=== PATIENT | male | born 1970 | race African-American/Black ===

== ENCOUNTER 2017-04-17 00:44 | Inpatient (IN) | payer OTHER ==
[~2017-04-17] VITALS: Ht 177.8 cm; Wt 101.2 kg
[2017-04-17 01:40] LABS: BASO % 0 % (0-3); EOS % 2 % (0-3); HEMATOCRIT 43.9 % (39.0-53.0); LYMPH # 0.5 x10^3/uL (1.0-4.8); LYMPH % 7 % (24-48); MEAN CORPUSCULAR HEMOGLOBIN 31 pg (25-35); MEAN CORPUSCULAR HGB CONC 34 g/dL (31-37); MEAN CORPUSCULAR VOLUME 89 fL (79-100); MONO % 7 % (0-9); NEUT % 84 % (31-73); PLATELET COUNT 182 x10^3/uL (140-400); RED BLOOD COUNT 4.91 x10^6/uL (4.30-5.70); RED CELL DISTRIBUTION WIDTH 13.4 % (11.5-14.5); WHITE BLOOD COUNT 6.6 x10^3/uL (4.0-11.0)
[2017-04-17 01:48] LABS: CALCIUM 8.9 mg/dL (8.5-10.1); CREATININE 1.3 mg/dL (0.7-1.3); GFR 72.2; POTASSIUM 3.8 mmol/L (3.5-5.1)
[2017-04-17 01:54] LABS: ALBUMIN 3.8 g/dL (3.4-5.0); DIRECT BILIRUBIN 0.2 mg/dL (0.0-0.2); TOTAL BILIRUBIN 0.7 mg/dL (0.2-1.0); TOTAL PROTEIN 7.7 g/dL (6.4-8.2)
[2017-04-17] MEDS ORDERED: IV NORMAL SALINE 500ML BAG 500 ML IV ONE (02:15)
[2017-04-17] MEDS ORDERED: LABETALOL 20 MG/4 ML DISP.SYRIN. IVP ONE (02:15)
[2017-04-17] MEDS ORDERED: CONTRAST GIVEN MC PRN (02:15)
--- NOTE | 2017-04-17 02:28 | PHYS DOC ---
Past Medical History Past Medical History: Hypertension Past Surgical History: No Surgical History Alcohol Use: Rarely Drug Use: None Adult General Chief Complaint Chief Complaint: NAUSEA/VOMITING/DIARRHA HPI HPI 47-year-old male presenting to the emergency department today with epigastric abdominal pain that is been intermittent over the past 2 days. He reports nausea associated with his symptoms. The pain is sharp shooting nonradiating nonmigratory and without alleviating factors. He denies fever. He denies diarrhea or constipation. Review of systems is negative for fevers chills chest pain or shortness of breath. He denies blood in his stools. All other review of systems is negative unless otherwise noted in history of present illness. ED course: 47-year-old male presenting with epigastric abdominal pain. Upon arrival the patient is afebrile with does have significant high blood pressure. He was given intravenous labetalol which brought his blood pressure down. Blood work obtained. CT abdomen pelvis obtained. Blood work unremarkable. CT abdomen pelvis negative for acute pathology. Patient's blood pressure mildly responded to IV labetalol and hydralazine, but required initiation of an esmolol drip. The patient was then admitted for hypertension management along with intractable nausea vomiting. Patient was admitted to Dr. rangel for further evaluation workup and care.I have assessed this patient clinically and believe that their condition requires an admission to the hospital. After consulting the admitting physician about this case, they have asked that I admit this patient to their service as an inpatient based on the clinical presentation and my impression. Review of Systems Review of Systems SEE ABOVE. Current Medications Current Medications Current Medications Medications (Trade) Dose Ordered Sig/Yohana Start Time Stop Time Status Last Admin Dose Admin Info (Do NOT chart on this entry -- for MONITORING) 1 each PRN DAILY PRN 04/17/17 02:15 04/19/17 02:14 Iohexol (Omnipaque 300 Mg/ml) 75 ml 1X ONCE 04/17/17 02:30 04/17/17 02:31 DC 04/17/17 02:41 75 ML Labetalol HCl (Normodyne) 10 mg 1X ONCE 04/17/17 02:15 04/17/17 02:16 DC 04/17/17 02:37 10 MG Sodium Chloride 500 ml @ 500 mls/hr 1X ONCE 04/17/17 02:15 04/17/17 03:14 DC 04/17/17 03:17 500 MLS/HR Allergies Allergies Allergies Coded Allergies Type Severity Reaction Last Updated Verified No Known Drug Allergies 04/17/17 No Physical Exam Physical Exam SEE ABOVE Constitutional: Well developed, well nourished, no acute distress, non-toxic appearance. HENT: Normocephalic, atraumatic, bilateral external ears normal, oropharynx moist, no oral exudates, nose normal. [] Eyes: PERRLA, EOMI, conjunctiva normal, no discharge. [] Neck: Normal range of motion, no tenderness, supple, no stridor. Cardiovascular:Heart rate regular rhythm, no murmur Lungs & Thorax: Bilateral breath sounds clear to auscultation [] Abdomen: Bowel sounds normal, nondistended, soft, no tenderness, no masses, no pulsatile masses. Skin: Warm, dry, no erythema, no rash. Back: No tenderness, no CVA tenderness. [] Extremities: No tenderness, no cyanosis, no clubbing, ROM intact, no edema. Neurologic: Alert and oriented X 3, normal motor function, normal sensory function, no focal deficits noted. [] Psychologic: Affect normal, judgement normal, mood normal. [] Current Patient Data Vital Signs Vital Signs Date Time Temp Pulse Resp B/P (MAP) Pulse Ox O2 Delivery O2 Flow Rate FiO2 04/17/17 03:47 99 177/97 04/17/17 03:30 18 98 Room Air 04/17/17 00:44 99.5 99.5 Lab Values Laboratory Tests Test 04/17/17 01:32 04/17/17 03:15 White Blood Count 6.6 x10^3/uL (4.0-11.0) Red Blood Count 4.91 x10^6/uL (4.30-5.70) Hemoglobin 15.0 g/dL (13.0-17.5) Hematocrit 43.9 % (39.0-53.0) Mean Corpuscular Volume 89 fL (79-100) Mean Corpuscular Hemoglobin 31 pg (25-35) Mean Corpuscular Hemoglobin Concent 34 g/dL (31-37) Red Cell Distribution Width 13.4 % (11.5-14.5) Platelet Count 182 x10^3/uL (140-400) Neutrophils (%) (Auto) 84 % (31-73) H Lymphocytes (%) (Auto) 7 % (24-48) L Monocytes (%) (Auto) 7 % (0-9) Eosinophils (%) (Auto) 2 % (0-3) Basophils (%) (Auto) 0 % (0-3) Neutrophils # (Auto) 5.6 x10^3uL (1.8-7.7) Lymphocytes # (Auto) 0.5 x10^3/uL (1.0-4.8) L Monocytes # (Auto) 0.5 x10^3/uL (0.0-1.1) Eosinophils # (Auto) 0.1 x10^3/uL (0.0-0.7) Basophils # (Auto) 0.0 x10^3/uL (0.0-0.2) Sodium Level 139 mmol/L (136-145) Potassium Level 3.8 mmol/L (3.5-5.1) Chloride Level 103 mmol/L (98-107) Carbon Dioxide Level 30 mmol/L (21-32) Anion Gap 6 (6-14) Blood Urea Nitrogen 15 mg/dL (8-26) Creatinine 1.3 mg/dL (0.7-1.3) Estimated GFR (Cockcroft-Gault) 72.2 Glucose Level 96 mg/dL (70-99) Calcium Level 8.9 mg/dL (8.5-10.1) Total Bilirubin 0.7 mg/dL (0.2-1.0) Direct Bilirubin 0.2 mg/dL (0.0-0.2) Aspartate Amino Transferase (AST) 28 U/L (15-37) Alanine Aminotransferase (ALT) 29 U/L (16-63) Alkaline Phosphatase 72 U/L (46-116) Troponin I Quantitative 0.017 ng/mL (0.000-0.055) Total Protein 7.7 g/dL (6.4-8.2) Albumin 3.8 g/dL (3.4-5.0) Lipase 119 U/L (73-393) Lactic Acid Level 1.2 mmol/L (0.4-2.0) Laboratory Tests 04/17/17 01:32 Laboratory Tests 04/17/17 01:32 EKG EKG [] Radiology/Procedures Radiology/Procedures [] Course & Med Decision Making Course & Med Decision Making Pertinent Labs and Imaging studies reviewed. (See chart for details) [] Dragon Disclaimer Dragon Disclaimer This electronic medical record was generated, in whole or in part, using a voice recognition dictation system. Departure Departure Impression: Primary Impression: Nausea & vomiting Additional Impression: Hypertensive urgency, malignant Disposition: HOME, SELF-CARE Admitting Physician: Azeb Rangel Condition: STABLE Referrals: NO PCP (PCP) Patient Instructions: Nausea and Vomiting Problem Qualifiers ANN JACOBSON MD Apr 17, 2017 02:28
[2017-04-17] MEDS ORDERED: IOHEXOL 300 MG/ML 100ML VIAL. IV ONE (02:30)
--- NOTE | 2017-04-17 03:38 | RAD ---
INDICATION: abdomen pain
75ml Omni 300
had to stop test while pt vomited directly after contrast injection COMPARISON: None. TECHNIQUE: Axial CT images were obtained through the abdomen and pelvis with intravenous contrast. The contrast bolus is poor secondary to altered timing since patient had episode of emesis. One or more of the following individualized dose reduction techniques were utilized for this examination: 1. Automated exposure control; 2. Adjustment of the mA and/or kV according to patient size; 3. Use of iterative reconstruction technique. FINDINGS: Small hiatal hernia is suspected. Abdominal aorta is not grossly aneurysmal. The lumen is not evaluated secondary to poor contrast. No intrahepatic bile duct dilation. No definite peripancreatic edema. Spleen unremarkable. Contrast excretion is seen in the bilateral kidneys without hydronephrosis. Urinary bladder has some contrast in urine within but not very distended. Wall appears mildly prominent but not very distended. Small fat-containing umbilical hernia. No definite periappendiceal inflammation. No dilated loops of bowel to suggest obstruction. Mild degenerative changes spine IMPRESSION: 1. No evidence of appendicitis. 2. No hydronephrosis. 3. Urinary bladder is largely decompressed but wall appears mildly prominent. Could be from lack of distention but would correlate with symptoms in the region to ensure there is not a pathologic process such as cystitis. 4. Mildly enlarged groin lymph nodes measuring up to about 11 mm short axis. Electronically signed by: Juliano Heredia MD (04/17/2017 3:35 AM) [facility]
[2017-04-17] MEDS ORDERED: ESMOLOL 2500MG/250ML PREMIX 250 ML IV ONE (04:00)
[2017-04-17] MEDS ORDERED: hydrALAZINE 20 MG/ML VIAL. IVP ONE (04:00)
[2017-04-17 04:43] LABS: BILIRUBIN,URINE NEGATIVE (NEG); GLUCOSE,URINE NEGATIVE (NEG); NITRITE,URINE NEGATIVE (NEG); PH,URINE 8.5; PROTEIN,URINE NEGATIVE (NEG-TRACE); UROBILINOGEN,URINE 0.2 mg/dL (0.2 mg/dL)
[2017-04-17 04:48] LABS: BACTERIA,URINE 0 /HPF (0-FEW); SQUAMOUS EPITHELIAL CELL,UR OCC /LPF; WBC,URINE 0 /HPF (0-4)
[2017-04-17] MEDS ORDERED: ONDANSETRON PF 4 MG/2 ML VIAL. IV ONE (05:30)
[2017-04-17] MEDS ORDERED: MORPHINE SULFATE 2 MG/ML DISP.SYRIN. IV PRN (05:45)
[2017-04-17] MEDS ORDERED: ONDANSETRON PF 4 MG/2 ML VIAL. IV PRN (05:45)
[2017-04-17] MEDS ORDERED: diphenhydrAMINE 50 MG/ML VIAL IVP ONE (06:00)
[2017-04-17] MEDS ORDERED: METOCLOPRAMIDE HCL 10 MG/2 ML VIAL. IV ONE (06:00)
[2017-04-17] MEDS: IV NORMAL SALINE 1000ML BAG 1,000 ML IV SCH ×2 (06:15→16:42)
[2017-04-17] MEDS ORDERED: POLYETHYLENE GLYCOL 3350 17 GM PACKET. PO PRN (08:45)
[2017-04-17] MEDS ORDERED: oxyCODONE/APAP 5/325 1 TAB TABLET PO PRN (08:45)
--- NOTE | 2017-04-17 08:48 | PDOC1 ---
History and Physical Date of Admission Date of Admission DATE: 04/17/17 TIME: 08:39 Identification/Chief Complaint Chief Complaint headache, abdominal pain Problems: Source Source: Chart review, Patient History of Present Illness History of Present Illness Mr. Mohamud, is a 47-year-old male admit today with acute epigastric abdominal pain that is been intermittent over the past 2 days. Pain is now LLQ and marked to palpation he has a severe headache, had marked HTn when presented to the ER, 230/100, and has been on esmolol gtt this AM. he has longstanding hx of htn, has not been on meds, does not follow with any physician + nausea, no vomiting, last stool was very hard, limited amount of stool, he got constipated after thanksgiving Past Medical History Cardiovascular: HTN Pulmonary: No pertinent hx GI: No pertinent hx Heme/Onc: No pertinent hx Hepatobiliary: No pertinent hx Psych: No pertinent hx Rheumatologic: No pertinent hx Infectious disease: No pertinent hx ENT: No pertinent hx Renal/: No pertinent hx Family History Family History: Family History Unknown Social History Smoke: No ALCOHOL: none Drugs: None Current Problem List Problem List Problems Medical Problems: (1) Hypertensive urgency, malignant Status: Acute (2) Nausea & vomiting Status: Acute Problems: Current Medications Current Medications Current Medications Sodium Chloride 500 ml @ 500 mls/hr 1X ONCE IV Last administered on 03:17; Start 04/17/17 at 02:15; Stop 04/17/17 at 03:14; Status DC Labetalol HCl (Normodyne) 10 mg 1X ONCE IVP Last administered on 04/17/17 02 :37; Start 04/17/17 at 02:15; Stop 04/17/17 at 02:16; Status DC Iohexol (Omnipaque 300 Mg/ml) 75 ml 1X ONCE IV Last administered on 02:41; Start 04/17/17 at 02:30; Stop 04/17/17 at 02:31; Status DC Info (Do NOT chart on this entry -- for MONITORING) 1 each PRN DAILY PRN MC SEE COMMENTS; Start 04/17/17 at 02:15; Stop 04/19/17 at 02:14 Hydralazine HCl (Apresoline Inj) 10 mg 1X ONCE IVP Last administered on 03:47; Start 04/17/17 at 04:00; Stop 04/17/17 at 04:01; Status DC Esmolol HCl 250 ml @ 0 mls/hr 1X ONCE IV Last administered on 04/17/17 04:42 ; Start 04/17/17 at 04:00; Stop 04/17/17 at 04:01; Status DC Ondansetron HCl (Zofran) 4 mg 1X ONCE IV Last administered on 04/17/17 05:34 ; Start 04/17/17 at 05:30; Stop 04/17/17 at 05:31; Status DC Metoclopramide HCl (Reglan Vial) 10 mg 1X ONCE IV Last administered on 06:11; Start 04/17/17 at 06:00; Stop 04/17/17 at 06:01; Status DC Diphenhydramine HCl (Benadryl) 25 mg 1X ONCE IVP Last administered on 06:10; Start 04/17/17 at 06:00; Stop 04/17/17 at 06:01; Status DC Ondansetron HCl (Zofran) 4 mg PRN Q8HRS PRN IV NAUSEA/VOMITING; Start at 05:45; Stop 04/18/17 at 05:44 Morphine Sulfate 2 mg PRN Q2HR PRN IV SEVERE PAIN Last administered on 06:16; Start 04/17/17 at 05:45; Stop 04/18/17 at 05:44 Sodium Chloride 1,000 ml @ 100 mls/hr Q10H IV Last administered on 04/17/17 06:15; Start 04/17/17 at 06:00; Stop 04/18/17 at 05:59 Famotidine (Pepcid Vial) 20 mg BID IVP ; Start 04/17/17 at 09:00; Status UNV Oxycodone/ Acetaminophen (Percocet 5/325) 1 tab PRN Q4HRS PRN PO PAIN; Start 04/17/17 at 08:45; Status UNV Polyethylene Glycol (miraLAX PACKET) 17 gm DAILY PO ; Start 04/17/17 at 09:00; Status UNV Polyethylene Glycol (miraLAX PACKET) 17 gm PRN BID PRN PO CONSTIPATION; Start 04/17/17 at 08:45; Status UNV Magnesium Hydroxide (Milk Of Magnesia) 2,400 mg 1X ONCE PO ; Start 04/17/17 at 08:45; Stop 04/17/17 at 08:46; Status UNV Allergies Allergies: Coded Allergies: No Known Drug Allergies (Unverified , 04/17/17) ROS Review of System Review of systems is negative for fevers chills chest pain or shortness of breath. He denies blood in his stools. All other review of systems is negative unless otherwise noted in history of present illness. General: No: Chills, Night Sweats, Fatigue, Malaise, Appetite, Other PSYCHOLOGICAL ROS: No: Anxiety, Behavioral Disorder, Concentration difficultie , Decreased libido, Depression, Disorientation, Hallucinations, Hostility, Irritablity, Memory difficulties, Mood Swings, Obsessive thoughts, Physical abuse, Sexual abuse, Sleep disturbances, Suicidal ideation, Other Eyes: No Blurry vision, No Decreased vision, No Double vision, No Dry eyes, No Excessive tearing, No Eye Pain, No Itchy Eyes, No Loss of vision, No Photophobia , No Scotomata, No Uses contacts, No Uses glasses, No Other HEENT: No: Heacaches, Visual Changes, Hearing change, Nasal congestion, Nasal discharge, Oral lesions, Sinus pain, Sore Throat, Epistaxis, Sneezing, Snoring, Tinnitus, Vertigo, Vocal changes, Other Respiratory: No: Cough, Hemoptysis, Orthopnea, Pleuritic Pain, Shortness of breath, SOB with excertion, Sputum Changes, Stridor, Tachypnea, Wheezing, Other Cardiovascular: No Chest Pain, No Palpitations, No Orthopnea, No Paroxysmal Noc. Dyspnea, No Edema, No Lt Headedness, No Other Gastrointestinal: No Nausea, No Vomiting, No Abdominal Pain, No Diarrhea, No Constipation, No Melena, No Hematochezia, No Other Genitourinary: No Dysuria, No Frequency, No Incontinence, No Hematuria, No Retention, No Discharge, No Urgency, No Pain, No Flank Pain, No Other, No , No , No , No , No , No , No Musculoskeletal: No Gait Disturbance, No Joint Pain, No Joint Stiffness, No Joint Swelling, No Muscle Pain, No Muscular Weakness, No Pain In:, No Swelling In:, No Other Neurological: No Behavorial Changes, No Bowel/Bladder ControlChng, No Confusion , No Dizziness, No Gait Disturbance, No Headaches, No Impaired Coord/balance, No Memory Loss, No Numbness/Tingling, No Seizures, No Speech Problems, No Tremors, No Visual Changes, No Weakness, No Other Skin: No Dry Skin, No Eczema, No Hair Changes, No Lumps, No Mole Changes, No Mottling, No Nail Changes, No Pruritus, No Rash, No Skin Lesion Changes, No Other, No Acne Physical Exam General: Alert, Oriented X3, Cooperative HEENT: Atraumatic, PERRLA Lungs: Clear to auscultation, Normal air movement Heart: no gallops, no murmurs Abdomen: Normal bowel sounds, Soft Rectal Exam: not examined Extremities: No edema, Normal pulses Skin: No rashes Neuro: Normal gait, Normal speech, Normal tone, Sensation intact, Cranial nerves 3-12 NL Psych/Mental Status: Mental status NL, Mood NL Vitals Vitals Vital Signs Date Time Temp Pulse Resp B/P (MAP) Pulse Ox O2 Delivery O2 Flow Rate FiO2 04/17/17 07:16 97 14 164/79 (107) 97 Room Air 04/17/17 05:39 100.1 100.1 Labs Labs Laboratory Tests Test 04/17/17 01:32 04/17/17 03:15 04/17/17 04:37 White Blood Count 6.6 x10^3/uL (4.0-11.0) Red Blood Count 4.91 x10^6/uL (4.30-5.70) Hemoglobin 15.0 g/dL (13.0-17.5) Hematocrit 43.9 % (39.0-53.0) Mean Corpuscular Volume 89 fL (79-100) Mean Corpuscular Hemoglobin 31 pg (25-35) Mean Corpuscular Hemoglobin Concent 34 g/dL (31-37) Red Cell Distribution Width 13.4 % (11.5-14.5) Platelet Count 182 x10^3/uL (140-400) Neutrophils (%) (Auto) 84 % (31-73) Lymphocytes (%) (Auto) 7 % (24-48) Monocytes (%) (Auto) 7 % (0-9) Eosinophils (%) (Auto) 2 % (0-3) Basophils (%) (Auto) 0 % (0-3) Neutrophils # (Auto) 5.6 x10^3uL (1.8-7.7) Lymphocytes # (Auto) 0.5 x10^3/uL (1.0-4.8) Monocytes # (Auto) 0.5 x10^3/uL (0.0-1.1) Eosinophils # (Auto) 0.1 x10^3/uL (0.0-0.7) Basophils # (Auto) 0.0 x10^3/uL (0.0-0.2) Sodium Level 139 mmol/L (136-145) Potassium Level 3.8 mmol/L (3.5-5.1) Chloride Level 103 mmol/L (98-107) Carbon Dioxide Level 30 mmol/L (21-32) Anion Gap 6 (6-14) Blood Urea Nitrogen 15 mg/dL (8-26) Creatinine 1.3 mg/dL (0.7-1.3) Estimated GFR (Cockcroft-Gault) 72.2 Glucose Level 96 mg/dL (70-99) Calcium Level 8.9 mg/dL (8.5-10.1) Total Bilirubin 0.7 mg/dL (0.2-1.0) Direct Bilirubin 0.2 mg/dL (0.0-0.2) Aspartate Amino Transf (AST/SGOT) 28 U/L (15-37) Alanine Aminotransferase (ALT/SGPT) 29 U/L (16-63) Alkaline Phosphatase 72 U/L (46-116) Troponin I Quantitative 0.017 ng/mL (0.000-0.055) Total Protein 7.7 g/dL (6.4-8.2) Albumin 3.8 g/dL (3.4-5.0) Lipase 119 U/L (73-393) Lactic Acid Level 1.2 mmol/L (0.4-2.0) Urine Collection Type Unknown Urine Color Yellow Urine Clarity Clear Urine pH 8.5 Urine Specific Loa >=1.030 Urine Protein Negative mg/dL (NEG-TRACE) Urine Glucose (UA) Negative mg/dL (NEG) Urine Ketones (Stick) Negative mg/dL (NEG) Urine Blood Negative (NEG) Urine Nitrite Negative (NEG) Urine Bilirubin Negative (NEG) Urine Urobilinogen Dipstick 0.2 mg/dL (0.2 mg/dL) Urine Leukocyte Esterase Negative (NEG) Urine RBC 1-2 /HPF (0-2) Urine WBC 0 /HPF (0-4) Urine Squamous Epithelial Cells Occ /LPF Urine Bacteria 0 /HPF (0-FEW) Laboratory Tests Test 04/17/17 01:32 04/17/17 03:15 04/17/17 04:37 White Blood Count 6.6 x10^3/uL (4.0-11.0) Red Blood Count 4.91 x10^6/uL (4.30-5.70) Hemoglobin 15.0 g/dL (13.0-17.5) Hematocrit 43.9 % (39.0-53.0) Mean Corpuscular Volume 89 fL (79-100) Mean Corpuscular Hemoglobin 31 pg (25-35) Mean Corpuscular Hemoglobin Concent 34 g/dL (31-37) Red Cell Distribution Width 13.4 % (11.5-14.5) Platelet Count 182 x10^3/uL (140-400) Neutrophils (%) (Auto) 84 % (31-73) Lymphocytes (%) (Auto) 7 % (24-48) Monocytes (%) (Auto) 7 % (0-9) Eosinophils (%) (Auto) 2 % (0-3) Basophils (%) (Auto) 0 % (0-3) Neutrophils # (Auto) 5.6 x10^3uL (1.8-7.7) Lymphocytes # (Auto) 0.5 x10^3/uL (1.0-4.8) Monocytes # (Auto) 0.5 x10^3/uL (0.0-1.1) Eosinophils # (Auto) 0.1 x10^3/uL (0.0-0.7) Basophils # (Auto) 0.0 x10^3/uL (0.0-0.2) Sodium Level 139 mmol/L (136-145) Potassium Level 3.8 mmol/L (3.5-5.1) Chloride Level 103 mmol/L (98-107) Carbon Dioxide Level 30 mmol/L (21-32) Anion Gap 6 (6-14) Blood Urea Nitrogen 15 mg/dL (8-26) Creatinine 1.3 mg/dL (0.7-1.3) Estimated GFR (Cockcroft-Gault) 72.2 Glucose Level 96 mg/dL (70-99) Calcium Level 8.9 mg/dL (8.5-10.1) Total Bilirubin 0.7 mg/dL (0.2-1.0) Direct Bilirubin 0.2 mg/dL (0.0-0.2) Aspartate Amino Transf (AST/SGOT) 28 U/L (15-37) Alanine Aminotransferase (ALT/SGPT) 29 U/L (16-63) Alkaline Phosphatase 72 U/L (46-116) Troponin I Quantitative 0.017 ng/mL (0.000-0.055) Total Protein 7.7 g/dL (6.4-8.2) Albumin 3.8 g/dL (3.4-5.0) Lipase 119 U/L (73-393) Lactic Acid Level 1.2 mmol/L (0.4-2.0) Urine Collection Type Unknown Urine Color Yellow Urine Clarity Clear Urine pH 8.5 Urine Specific Loa >=1.030 Urine Protein Negative mg/dL (NEG-TRACE) Urine Glucose (UA) Negative mg/dL (NEG) Urine Ketones (Stick) Negative mg/dL (NEG) Urine Blood Negative (NEG) Urine Nitrite Negative (NEG) Urine Bilirubin Negative (NEG) Urine Urobilinogen Dipstick 0.2 mg/dL (0.2 mg/dL) Urine Leukocyte Esterase Negative (NEG) Urine RBC 1-2 /HPF (0-2) Urine WBC 0 /HPF (0-4) Urine Squamous Epithelial Cells Occ /LPF Urine Bacteria 0 /HPF (0-FEW) VTE Prophylaxis Ordered VTE Prophylaxis Devices: No VTE Pharmacological Prophylaxi: Yes Assessment/Plan Assessment/Plan accelerated htn, esmolol gtt, start PO norvasc acute abdominal pain, nausea, LLQ pain, hiatal hernia, GI consulted , start IV PPI mild constipation, miralax and magnesium PAULA CANSECO MD Apr 17, 2017 08:48
[2017-04-17] MEDS ORDERED: MAGNESIUM HYDROXIDE 2,400 MG/30 ML ORAL.SUSP. PO ONE ×2 (09:00→14:00)
[2017-04-17] MEDS: amLODIPine BESYLATE 10 MG TABLET PO SCH (09:03)
[2017-04-17] MEDS: FAMOTIDINE 20 MG/2 ML VIAL IVP SCH ×2 (10:17→19:47)
[2017-04-17] MEDS ORDERED: ACETAMINOPHEN 325 MG TABLET. PO PRN (12:45)
--- NOTE | 2017-04-17 13:32 | PDOC2 ---
NATALY OSPINA SPEECH CLINICIAN 04/17/17 1332: CARDIAC CONSULT DATE OF CONSULT Date of Consult DATE: 04/17/17 TIME: 13:21 REASON FOR CONSULT Reason for Consult: HTN REFERRING PHYSICIAN Referring Physician: Gladis SOURCE Source: Chart review, Patient HISTORY OF PRESENT ILLNESS HISTORY OF PRESENT ILLNESS This is a pleasant 47 yo male admitted for complains of chills, nausea and vomiting. Reports that he had this symptoms and woke him up from sleep. No recorded fever. Consult is for HTN. Pt has been noted with HTN 5 yrs ago. He was placed on 2 BP meds but he decided to stop it saying that he did not need it. His last dose was 06/2016. He presented today with the latter symptoms but also has been having mild POSEY and his BP was high. Upon treatment in ED his BP got better but is still labile. Denies any CP, SOA, palpitations, dizziness. Denies any abdominal pain. Denies recreational drug use and NSAID use. No routine medications taken at home. PAST MEDICAL HISTORY Past Medical History HTN otherwise no other medical history PAST SURGICAL HISTORY Past Surgical History: No pertinent history FAMILY HISTORY Family History: Diabetes (mother) SOCIAL HISTORY Smoke: 1 pack per day (15 yrs) ALCOHOL: occassional Drugs: None Lives: Alone CURRENT MEDICATIONS CURRENT MEDICATIONS Current Medications Medications (Trade) Dose Ordered Sig/Yohana Route PRN Reason Start Time Stop Time Status Last Admin Dose Admin Sodium Chloride 500 ml @ 500 mls/hr 1X ONCE IV 04/17/17 02:15 04/17/17 03:14 DC 04/17/17 03:17 Labetalol HCl (Normodyne) 10 mg 1X ONCE IVP 04/17/17 02:15 04/17/17 02:16 DC 04/17/17 02:37 Iohexol (Omnipaque 300 Mg/ml) 75 ml 1X ONCE IV 04/17/17 02:30 04/17/17 02:31 DC 04/17/17 02:41 Hydralazine HCl (Apresoline Inj) 10 mg 1X ONCE IVP 04/17/17 04:00 04/17/17 04:01 DC 04/17/17 03:47 Esmolol HCl 250 ml @ 0 mls/hr 1X ONCE IV 04/17/17 04:00 04/17/17 04:01 DC 04/17/17 04:42 Ondansetron HCl (Zofran) 4 mg 1X ONCE IV 04/17/17 05:30 04/17/17 05:31 DC 04/17/17 05:34 Metoclopramide HCl (Reglan Vial) 10 mg 1X ONCE IV 04/17/17 06:00 04/17/17 06:01 DC 04/17/17 06:11 Diphenhydramine HCl (Benadryl) 25 mg 1X ONCE IVP 04/17/17 06:00 04/17/17 06:01 DC 04/17/17 06:10 Morphine Sulfate 2 mg PRN Q2HR PRN IV SEVERE PAIN 04/17/17 05:45 04/18/17 05:44 04/17/17 06:16 Sodium Chloride 1,000 ml @ 100 mls/hr Q10H IV 04/17/17 06:00 04/18/17 05:59 04/17/17 06:15 Famotidine (Pepcid Vial) 20 mg BID IVP 04/17/17 09:00 04/17/17 10:17 Amlodipine Besylate (Norvasc) 10 mg DAILY PO 04/17/17 09:00 04/17/17 09:03 ALLERGIES ALLERGIES: Coded Allergies: No Known Drug Allergies (Unverified , 04/17/17) ROS Review of System 14 point ROS evaluated with pertinent positives noted per hPI PHYSICAL EXAM General: Alert, Oriented X3, Cooperative, No acute distress HEENT: Atraumatic, Mucous membr. moist/pink Lungs: Clear to auscultation, Normal air movement Heart: Regular rate (SR), Normal S1, Normal S2, No murmurs Abdomen: Soft, No tenderness Extremities: No cyanosis, No edema Skin: No breakdown, No significant lesion Neuro: Normal speech, Sensation intact Psych/Mental Status: Mental status NL, Mood NL MUSCULOSKELETAL: Full range of motion without pain VITALS VITALS Vital Signs Date Time Temp Pulse Resp B/P (MAP) Pulse Ox O2 Delivery O2 Flow Rate FiO2 04/17/17 09:03 98 165/97 04/17/17 07:16 14 97 Room Air 04/17/17 05:39 100.1 100.1 LABS Lab: Laboratory Tests Test 04/17/17 01:32 04/17/17 03:15 04/17/17 04:37 White Blood Count 6.6 x10^3/uL (4.0-11.0) Red Blood Count 4.91 x10^6/uL (4.30-5.70) Hemoglobin 15.0 g/dL (13.0-17.5) Hematocrit 43.9 % (39.0-53.0) Mean Corpuscular Volume 89 fL (79-100) Mean Corpuscular Hemoglobin 31 pg (25-35) Mean Corpuscular Hemoglobin Concent 34 g/dL (31-37) Red Cell Distribution Width 13.4 % (11.5-14.5) Platelet Count 182 x10^3/uL (140-400) Neutrophils (%) (Auto) 84 % (31-73) Lymphocytes (%) (Auto) 7 % (24-48) Monocytes (%) (Auto) 7 % (0-9) Eosinophils (%) (Auto) 2 % (0-3) Basophils (%) (Auto) 0 % (0-3) Neutrophils # (Auto) 5.6 x10^3uL (1.8-7.7) Lymphocytes # (Auto) 0.5 x10^3/uL (1.0-4.8) Monocytes # (Auto) 0.5 x10^3/uL (0.0-1.1) Eosinophils # (Auto) 0.1 x10^3/uL (0.0-0.7) Basophils # (Auto) 0.0 x10^3/uL (0.0-0.2) Sodium Level 139 mmol/L (136-145) Potassium Level 3.8 mmol/L (3.5-5.1) Chloride Level 103 mmol/L (98-107) Carbon Dioxide Level 30 mmol/L (21-32) Anion Gap 6 (6-14) Blood Urea Nitrogen 15 mg/dL (8-26) Creatinine 1.3 mg/dL (0.7-1.3) Estimated GFR (Cockcroft-Gault) 72.2 Glucose Level 96 mg/dL (70-99) Calcium Level 8.9 mg/dL (8.5-10.1) Total Bilirubin 0.7 mg/dL (0.2-1.0) Direct Bilirubin 0.2 mg/dL (0.0-0.2) Aspartate Amino Transf (AST/SGOT) 28 U/L (15-37) Alanine Aminotransferase (ALT/SGPT) 29 U/L (16-63) Alkaline Phosphatase 72 U/L (46-116) Troponin I Quantitative 0.017 ng/mL (0.000-0.055) Total Protein 7.7 g/dL (6.4-8.2) Albumin 3.8 g/dL (3.4-5.0) Lipase 119 U/L (73-393) Lactic Acid Level 1.2 mmol/L (0.4-2.0) Urine Collection Type Unknown Urine Color Yellow Urine Clarity Clear Urine pH 8.5 Urine Specific [place] >=1.030 Urine Protein Negative mg/dL (NEG-TRACE) Urine Glucose (UA) Negative mg/dL (NEG) Urine Ketones (Stick) Negative mg/dL (NEG) Urine Blood Negative (NEG) Urine Nitrite Negative (NEG) Urine Bilirubin Negative (NEG) Urine Urobilinogen Dipstick 0.2 mg/dL (0.2 mg/dL) Urine Leukocyte Esterase Negative (NEG) Urine RBC 1-2 /HPF (0-2) Urine WBC 0 /HPF (0-4) Urine Squamous Epithelial Cells Occ /LPF Urine Bacteria 0 /HPF (0-FEW) ASSESSMENT/PLAN ASSESSMENT/PLAN 1. Accelerated HTN 2. Fever/n/v with inguinal lymphadenopathy: per PCP 3. Dehydration 4. Noncompliance: failed to take BP meds. Noted initially about 5 yrs ago with last dose takenj 06/2016 5. Tobaccoism Recommendations 1. UDS, TSH, lipids 2. TTE. Agree with norvasc. Start on lisinopril. Add HCTZ once n/v is completely resolved. Labetolol IV PRN 3. IVF. 4. Smoking cessation Problems: SONIA MELGAR MD 04/17/17 1454: CARDIAC CONSULT ALLERGIES ALLERGIES: Coded Allergies: No Known Drug Allergies (Unverified , 04/17/17) ASSESSMENT/PLAN ASSESSMENT/PLAN Patient seen and examined. Agree with JUICE SCALEMAN's assessment and plan. Accelerated hypertension secondary to noncompliance. Continue Norvasc and start lisinopril. Check 2-D echo to assess LV systolic function. Thank you for your consultation. Problems: NATALY OSPINA APRN Apr 17, 2017 13:32 SONIA MELGAR MD Apr 17, 2017 14:54
[2017-04-17 13:56] LABS: BARBITURATES NEG (NEG); BENZODIAZEPINES NEG (NEG); CANNABINOIDS NEG (NEG); COCAINE NEG (NEG); METHADONE NEG (NEG); PHENCYCLIDINE NEG (NEG)
[2017-04-17 13:57] LABS: OPIATES POS (NEG)
[2017-04-17 13:59] LABS: CHOLESTEROL/HDL RATIO 3.3
[2017-04-17] MEDS: POLYETHYLENE GLYCOL 3350 17 GM PACKET. PO SCH (14:07)
[2017-04-17] MEDS: LISINOPRIL 20 MG TABLET PO SCH (14:08)
--- NOTE | 2017-04-17 14:20 | EKG ---
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
[2017-04-17 15:00] VITALS: BP 137/83
--- NOTE | 2017-04-17 15:54 | RAD ---
Chest x-ray Indication: Fever, nausea vomiting. Technique: PA and lateral views of the chest Comparison: None Findings: Heart is top normal in size. Lungs are clear. No pneumothorax or pleural effusion. Visualized bony thorax is within normal limits. Eventration of the right hemidiaphragm. Impression: No acute cardiopulmonary process.
[2017-04-17 19:00] VITALS: BP 135/86
[2017-04-17 23:00] VITALS: BP 123/84
[2017-04-18] MEDS: IV NORMAL SALINE 1000ML BAG 1,000 ML IV SCH (02:07)
[2017-04-18 03:00] VITALS: BP 167/90
[2017-04-18 05:44] LABS: BASO % 1 % (0-3); EOS % 3 % (0-3); HEMATOCRIT 41.8 % (39.0-53.0); HEMOGLOBIN 13.9 g/dL (13.0-17.5); LYMPH # 1.1 x10^3/uL (1.0-4.8); LYMPH % 31 % (24-48); MEAN CORPUSCULAR HEMOGLOBIN 30 pg (25-35); MEAN CORPUSCULAR HGB CONC 33 g/dL (31-37); MEAN CORPUSCULAR VOLUME 91 fL (79-100); MONO % 16 % (0-9); NEUT % 49 % (31-73); PLATELET COUNT 166 x10^3/uL (140-400); RED CELL DISTRIBUTION WIDTH 13.4 % (11.5-14.5); WHITE BLOOD COUNT 3.4 x10^3/uL (4.0-11.0)
[2017-04-18 06:17] LABS: CALCIUM 8.2 mg/dL (8.5-10.1); CREATININE 1.3 mg/dL (0.7-1.3); GFR 72.2; POTASSIUM 3.8 mmol/L (3.5-5.1)
[2017-04-18 07:00] VITALS: BP 189/118
[2017-04-18] MEDS: amLODIPine BESYLATE 10 MG TABLET PO SCH (07:29)
[2017-04-18] MEDS: LISINOPRIL 20 MG TABLET PO SCH (07:30)
[2017-04-18] MEDS: POLYETHYLENE GLYCOL 3350 17 GM PACKET. PO SCH (09:00)
[2017-04-18] MEDS ORDERED: LISINOPRIL 20 MG TABLET PO SCH (09:00)
[2017-04-18] MEDS: FAMOTIDINE 20 MG/2 ML VIAL IVP SCH (09:02)
[2017-04-18 11:00] VITALS: BP 176/110
[2017-04-18 11:57] VITALS: BP 167/110
[2017-04-18] MEDS ORDERED: hydrALAZINE 20 MG/ML VIAL. IVP PRN (12:00)
[2017-04-18] MEDS ORDERED: AMLO10TA4 PO (13:04)
[2017-04-18] MEDS ORDERED: LISI-334 PO (13:04)
--- NOTE | 2017-04-18 13:06 | PDOC3 ---
Discharge Summary Visit Information Date of Admission: Apr 17, 2017 Date of Discharge: Apr 18, 2017 Admitting Diagnosis Comment: HTN emergency Final Diagnosis Problems Medical Problems: (1) Hypertensive urgency, malignant Status: Acute (2) Nausea & vomiting Status: Acute Brief Hospital Course Allergies Allergies Coded Allergies Type Severity Reaction Last Updated Verified No Known Drug Allergies 04/17/17 No Vital Signs Vital Signs Date Time Temp Pulse Resp B/P (MAP) Pulse Ox O2 Delivery O2 Flow Rate FiO2 04/18/17 11:57 167/110 04/18/17 11:00 97.9 70 22 97 Room Air 97.9 Lab Results Laboratory Tests Test 04/17/17 01:32 04/17/17 03:15 04/17/17 04:37 04/18/17 04:50 White Blood Count 6.6 x10^3/uL (4.0-11.0) 3.4 x10^3/uL (4.0-11.0) Red Blood Count 4.91 x10^6/uL (4.30-5.70) 4.60 x10^6/uL (4.30-5.70) Hemoglobin 15.0 g/dL (13.0-17.5) 13.9 g/dL (13.0-17.5) Hematocrit 43.9 % (39.0-53.0) 41.8 % (39.0-53.0) Mean Corpuscular Volume 89 fL (79-100) 91 fL (79-100) Mean Corpuscular Hemoglobin 31 pg (25-35) 30 pg (25-35) Mean Corpuscular Hemoglobin Concent 34 g/dL (31-37) 33 g/dL (31-37) Red Cell Distribution Width 13.4 % (11.5-14.5) 13.4 % (11.5-14.5) Platelet Count 182 x10^3/uL (140-400) 166 x10^3/uL (140-400) Neutrophils (%) (Auto) 84 % (31-73) 49 % (31-73) Lymphocytes (%) (Auto) 7 % (24-48) 31 % (24-48) Monocytes (%) (Auto) 7 % (0-9) 16 % (0-9) Eosinophils (%) (Auto) 2 % (0-3) 3 % (0-3) Basophils (%) (Auto) 0 % (0-3) 1 % (0-3) Neutrophils # (Auto) 5.6 x10^3uL (1.8-7.7) 1.7 x10^3uL (1.8-7.7) Lymphocytes # (Auto) 0.5 x10^3/uL (1.0-4.8) 1.1 x10^3/uL (1.0-4.8) Monocytes # (Auto) 0.5 x10^3/uL (0.0-1.1) 0.5 x10^3/uL (0.0-1.1) Eosinophils # (Auto) 0.1 x10^3/uL (0.0-0.7) 0.1 x10^3/uL (0.0-0.7) Basophils # (Auto) 0.0 x10^3/uL (0.0-0.2) 0.0 x10^3/uL (0.0-0.2) Sodium Level 139 mmol/L (136-145) 139 mmol/L (136-145) Potassium Level 3.8 mmol/L (3.5-5.1) 3.8 mmol/L (3.5-5.1) Chloride Level 103 mmol/L (98-107) 106 mmol/L (98-107) Carbon Dioxide Level 30 mmol/L (21-32) 29 mmol/L (21-32) Anion Gap 6 (6-14) 4 (6-14) Blood Urea Nitrogen 15 mg/dL (8-26) 12 mg/dL (8-26) Creatinine 1.3 mg/dL (0.7-1.3) 1.3 mg/dL (0.7-1.3) Estimated GFR (Cockcroft-Gault) 72.2 72.2 Glucose Level 96 mg/dL (70-99) 91 mg/dL (70-99) Calcium Level 8.9 mg/dL (8.5-10.1) 8.2 mg/dL (8.5-10.1) Total Bilirubin 0.7 mg/dL (0.2-1.0) Direct Bilirubin 0.2 mg/dL (0.0-0.2) Aspartate Amino Transf (AST/SGOT) 28 U/L (15-37) Alanine Aminotransferase (ALT/SGPT) 29 U/L (16-63) Alkaline Phosphatase 72 U/L (46-116) Troponin I Quantitative 0.017 ng/mL (0.000-0.055) Total Protein 7.7 g/dL (6.4-8.2) Albumin 3.8 g/dL (3.4-5.0) Triglycerides Level 74 mg/dL (0-150) Cholesterol Level 187 mg/dL (0-200) LDL Cholesterol, Calculated 116 mg/dL (0-100) VLDL Cholesterol, Calculated 15 mg/dL (0-40) Non-HDL Cholesterol Calculated 131 mg/dL (0-129) HDL Cholesterol 56 mg/dL (40-60) Cholesterol/HDL Ratio 3.3 Lipase 119 U/L (73-393) Thyroid Stimulating Hormone (TSH) 1.121 uIU/mL (0.358-3.74) Lactic Acid Level 1.2 mmol/L (0.4-2.0) Urine Collection Type Unknown Urine Color Yellow Urine Clarity Clear Urine pH 8.5 Urine Specific [place] >=1.030 Urine Protein Negative mg/dL (NEG-TRACE) Urine Glucose (UA) Negative mg/dL (NEG) Urine Ketones (Stick) Negative mg/dL (NEG) Urine Blood Negative (NEG) Urine Nitrite Negative (NEG) Urine Bilirubin Negative (NEG) Urine Urobilinogen Dipstick 0.2 mg/dL (0.2 mg/dL) Urine Leukocyte Esterase Negative (NEG) Urine RBC 1-2 /HPF (0-2) Urine WBC 0 /HPF (0-4) Urine Squamous Epithelial Cells Occ /LPF Urine Bacteria 0 /HPF (0-FEW) Urine Opiates Screen Pos (NEG) Urine Methadone Screen Neg (NEG) Urine Barbiturates Neg (NEG) Urine Phencyclidine Screen Neg (NEG) Urine Amphetamine/Methamphetamine Neg (NEG) Urine Benzodiazepines Screen Neg (NEG) Urine Cocaine Screen Neg (NEG) Urine Cannabinoids Screen Neg (NEG) Urine Ethyl Alcohol Neg (NEG) Laboratory Tests Test 04/18/17 04:50 White Blood Count 3.4 x10^3/uL (4.0-11.0) Red Blood Count 4.60 x10^6/uL (4.30-5.70) Hemoglobin 13.9 g/dL (13.0-17.5) Hematocrit 41.8 % (39.0-53.0) Mean Corpuscular Volume 91 fL (79-100) Mean Corpuscular Hemoglobin 30 pg (25-35) Mean Corpuscular Hemoglobin Concent 33 g/dL (31-37) Red Cell Distribution Width 13.4 % (11.5-14.5) Platelet Count 166 x10^3/uL (140-400) Neutrophils (%) (Auto) 49 % (31-73) Lymphocytes (%) (Auto) 31 % (24-48) Monocytes (%) (Auto) 16 % (0-9) Eosinophils (%) (Auto) 3 % (0-3) Basophils (%) (Auto) 1 % (0-3) Neutrophils # (Auto) 1.7 x10^3uL (1.8-7.7) Lymphocytes # (Auto) 1.1 x10^3/uL (1.0-4.8) Monocytes # (Auto) 0.5 x10^3/uL (0.0-1.1) Eosinophils # (Auto) 0.1 x10^3/uL (0.0-0.7) Basophils # (Auto) 0.0 x10^3/uL (0.0-0.2) Sodium Level 139 mmol/L (136-145) Potassium Level 3.8 mmol/L (3.5-5.1) Chloride Level 106 mmol/L (98-107) Carbon Dioxide Level 29 mmol/L (21-32) Anion Gap 4 (6-14) Blood Urea Nitrogen 12 mg/dL (8-26) Creatinine 1.3 mg/dL (0.7-1.3) Estimated GFR (Cockcroft-Gault) 72.2 Glucose Level 91 mg/dL (70-99) Calcium Level 8.2 mg/dL (8.5-10.1) Brief Hospital Course Mr. 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
== END 2017-04-18 14:19 | disposition home or self-care (01) | DRG 305 ==
LOC: ER 00:44 → 6 SOUTH 03:47 → ED HOLD 04:19 → 5 NORTH 10:58
PROVIDERS: ADMIT Internal Medicine; ATTEND Internal Medicine
DX: I16.0 Hypertensive urgency (principal); E86.0 Dehydration; F17.210 Nicotine dependence, cigarettes, uncomplicated; K44.9 Diaphragmatic hernia without obstruction or gangrene; I10 Essential (primary) hypertension; K59.00 Constipation, unspecified; R59.1 Generalized enlarged lymph nodes; Z91.19 Patient's noncompliance with other medical treatment and regimen; Z83.3 Family history of diabetes mellitus
CPT/HCPCS: 36415; 71020; 74177; 80048; 80061; 80076; 80307; 81001; 83605; 83690; 84443; 84484; 85025; 87040; 87086; 93005; 96361; 96365; 96375; J0360; J1200; J2270; J2405; J2765; J3490; J7030; J7040; Q9967; S0028; 99285-25; G0479

== ENCOUNTER 2018-03-05 00:55 | Emergency (ER) | payer OTHER ==
[~2018-03-05] VITALS: Ht 177.8 cm; Wt 107.0 kg
[~2018-03-05 00:55] MED LIST: AMLO10TA4 PO; LISI-334 PO
[2018-03-05 01:15] VITALS: BP 218/140
[2018-03-05] MEDS ORDERED: IV NORMAL SALINE 1000ML BAG 1,000 ML IV ONE (03:00)
[2018-03-05 03:41] LABS: BASO % 1 % (0-3); EOS # 0.3 x10^3/uL (0.0-0.7); EOS % 4 % (0-3); HEMATOCRIT 42.7 % (39.0-53.0); LYMPH # 1.8 x10^3/uL (1.0-4.8); LYMPH % 30 % (24-48); MEAN CORPUSCULAR HEMOGLOBIN 31 pg (25-35); MEAN CORPUSCULAR HGB CONC 35 g/dL (31-37); MEAN CORPUSCULAR VOLUME 90 fL (79-100); MONO # 0.6 x10^3/uL (0.0-1.1); MONO % 10 % (0-9); NEUT # 3.4 x10^3uL (1.8-7.7); NEUT % 55 % (31-73); PLATELET COUNT 207 x10^3/uL (140-400); RED BLOOD COUNT 4.77 x10^6/uL (4.30-5.70); RED CELL DISTRIBUTION WIDTH 13.3 % (11.5-14.5); WHITE BLOOD COUNT 6.1 x10^3/uL (4.0-11.0)
--- NOTE | 2018-03-05 03:42 | PHYS DOC ---
Past Medical History Past Medical History: Hypertension Additional Past Medical Histor: RIGHT CALF NONHEALING WOUND Past Surgical History: No Surgical History Additional Past Surgical Histo: LT ACL REPAIR, EYE SX A CHILD Smoking: Cigarettes Alcohol Use: Rarely Drug Use: None Adult General Chief Complaint Chief Complaint: LOWER EXT PAIN HPI HPI 48 y/o male presents with report of chronic wound to right lower fibular area x 8-9 weeks. Patient reports wound started after accidentally catching it on surekha at his work [employer]. Reports is currently on his third round of antibiotics- doxycycline. Patient reports concern that it is not healing appropriately. Reports continued pain to area. Denies fever/chills. Denies redness or exudate. Report received tetanus booster 3 days ago. Denies immune compromised state including DM or chemotherapy. Review of Systems Review of Systems Constitutional: Denies fever or chills [] Eyes: Denies change in visual acuity, redness, or eye pain [] HENT: Denies nasal congestion or sore throat [] Respiratory: Denies cough or shortness of breath [] Cardiovascular: Denies chest pain or palpitations GI: Denies abdominal pain, nausea, vomiting, or diarrhea [] : Denies dysuria or hematuria [] Musculoskeletal: Denies back pain or joint pain [] Integument: Reports slow healing lesion to RLE Neurologic: Denies headache, focal weakness or sensory changes [] Complete systems were reviewed and found to be within normal limits, except as documented in this note. Current Medications Current Medications Current Medications Medications (Trade) Dose Ordered Sig/Yohana Start Time Stop Time Status Last Admin Dose Admin Ketorolac Tromethamine (Toradol 15mg Vial) 15 mg 1X ONCE 03/05/18 04:30 03/05/18 04:31 03/05/18 04:24 15 MG Potassium Chloride (Klor-Con) 40 meq 1X ONCE 03/05/18 04:30 03/05/18 04:31 03/05/18 04:24 40 MEQ Sodium Chloride 1,000 ml @ 1,000 mls/hr 1X ONCE 03/05/18 03:00 03/05/18 03:59 DC 03/05/18 03:16 1,000 MLS/HR Allergies Allergies Allergies Coded Allergies Type Severity Reaction Last Updated Verified No Known Drug Allergies 04/17/17 No Physical Exam Physical Exam Constitutional: Well developed, well nourished, no acute distress, non-toxic appearance. [] HENT: Normocephalic, atraumatic Eyes: Conjunctiva normal, no discharge. [] Neck: Normal range of motion, no tenderness, supple Cardiovascular: Heart rate regular rhythm, no murmur [] Lungs & Thorax: Bilateral breath sounds clear to auscultation [] Abdomen: Soft, no tenderness Skin: Warm, dry, no erythema, healing wound to lateral right distal third fibular area, no fluctuance, healing eschar noted, no exudate, mild tenderness to palpation Extremities: ROM intact, mild edema to RLE. [] Neurologic: Alert and oriented X 3, normal motor function, normal sensory function, no focal deficits noted. [] Psychologic: Affect normal, judgement normal, mood normal. [] Current Patient Data Vital Signs Vital Signs Date Time Temp Pulse Resp B/P (MAP) Pulse Ox O2 Delivery O2 Flow Rate FiO2 03/05/18 01:15 97.9 84 20 218/140 (166) 98 Room Air 97.9 Lab Values Laboratory Tests Test 03/05/18 03:15 White Blood Count 6.1 x10^3/uL (4.0-11.0) Red Blood Count 4.77 x10^6/uL (4.30-5.70) Hemoglobin 15.0 g/dL (13.0-17.5) Hematocrit 42.7 % (39.0-53.0) Mean Corpuscular Volume 90 fL (79-100) Mean Corpuscular Hemoglobin 31 pg (25-35) Mean Corpuscular Hemoglobin Concent 35 g/dL (31-37) Red Cell Distribution Width 13.3 % (11.5-14.5) Platelet Count 207 x10^3/uL (140-400) Neutrophils (%) (Auto) 55 % (31-73) Lymphocytes (%) (Auto) 30 % (24-48) Monocytes (%) (Auto) 10 % (0-9) H Eosinophils (%) (Auto) 4 % (0-3) H Basophils (%) (Auto) 1 % (0-3) Neutrophils # (Auto) 3.4 x10^3uL (1.8-7.7) Lymphocytes # (Auto) 1.8 x10^3/uL (1.0-4.8) Monocytes # (Auto) 0.6 x10^3/uL (0.0-1.1) Eosinophils # (Auto) 0.3 x10^3/uL (0.0-0.7) Basophils # (Auto) 0.0 x10^3/uL (0.0-0.2) Prothrombin Time 12.7 SEC (11.7-14.0) Prothrombin Time INR 1.0 (0.8-1.1) PTT 33 SEC (24-38) Sodium Level 141 mmol/L (136-145) Potassium Level 3.3 mmol/L (3.5-5.1) L Chloride Level 101 mmol/L (98-107) Carbon Dioxide Level 32 mmol/L (21-32) Anion Gap 8 (6-14) Blood Urea Nitrogen 21 mg/dL (8-26) Creatinine 1.5 mg/dL (0.7-1.3) H Estimated GFR (Cockcroft-Gault) 61.0 BUN/Creatinine Ratio 14 (6-20) Glucose Level 110 mg/dL (70-99) H Lactic Acid Level 0.8 mmol/L (0.4-2.0) Calcium Level 9.3 mg/dL (8.5-10.1) Magnesium Level 1.8 mg/dL (1.8-2.4) Total Bilirubin 0.4 mg/dL (0.2-1.0) Aspartate Amino Transferase (AST) 25 U/L (15-37) Alanine Aminotransferase (ALT) 38 U/L (16-63) Alkaline Phosphatase 76 U/L (46-116) Total Protein 7.7 g/dL (6.4-8.2) Albumin 3.7 g/dL (3.4-5.0) Albumin/Globulin Ratio 0.9 (1.0-1.7) L Laboratory Tests 03/05/18 03:15 Laboratory Tests 03/05/18 03:15 EKG EKG [] Radiology/Procedures Radiology/Procedures XR right Tibia/Fibula(preliminary interpretation by ED physician)- NO fracture, no retained foreign body RLE venous doppler- preliminary interpretation: NO acute DVT Course & Med Decision Making Course & Med Decision Making Pertinent Labs and Imaging studies reviewed. (See chart for details) Patient presents with 8-9 week history of right lower extremity distal wound for which patient is on his third round of antibiotics. No significant signs of infection appreciated. Patient is afebrile. Tetanus is up-to-date. Labs obtained and posted to chart. Hypokalemia addressed. Renal insufficiency baseline per [employer] review. X-rays of right tibia/fibula obtained without acute process. Venous Doppler negative for DVT. Patient stable for discharge with outpatient follow-up with PCP/wound care. Wound care referral provided. Discussed findings and plan with patient, who acknowledges understanding and agreement. Dragon Disclaimer Dragon Disclaimer This electronic medical record was generated, in whole or in part, using a voice recognition dictation system. Departure Departure Impression: Primary Impression: Encounter for evaluation of wound Additional Impression: Hypokalemia Disposition: HOME, SELF-CARE Condition: STABLE Referrals: NO PCP (PCP) Patient Instructions: Hypokalemia-Brief, Potassium Content of Foods, Wound Care , [id number], Wound Check Additional Instructions: Continue previously prescribed antibiotics Scripts Mupirocin Calcium (BACTROBAN CREAM) 15 Gm Cream..g. 1 SUSAN TP TID, #30 GM Prov: NICOLE BUCKNER DO 03/05/18 Problem Qualifiers NICOLE BUCKNER DO Mar 05, 2018 03:42
[2018-03-05 03:48] LABS: PROTHROMBIN TIME PATIENT 12.7 SEC (11.7-14.0)
[2018-03-05 03:51] LABS: CALCIUM 9.3 mg/dL (8.5-10.1); CREATININE 1.5 mg/dL (0.7-1.3); POTASSIUM 3.3 mmol/L (3.5-5.1)
[2018-03-05 03:57] LABS: ALBUMIN 3.7 g/dL (3.4-5.0); ALBUMIN/GLOBULIN RATIO 0.9 (1.0-1.7); MAGNESIUM 1.8 mg/dL (1.8-2.4); TOTAL BILIRUBIN 0.4 mg/dL (0.2-1.0); TOTAL PROTEIN 7.7 g/dL (6.4-8.2)
[2018-03-05] MEDS ORDERED: MUPI15CR TP (03:57)
[2018-03-05] MEDS ORDERED: POTASSIUM CHLORIDE 20 MEQ TABLET.ER. PO ONE (04:30)
[2018-03-05] MEDS ORDERED: KETOROLAC 15 MG/ML VIAL. IV ONE (04:30)
[2018-03-05] MEDS ORDERED: TRAM50TA PO (04:56)
--- NOTE | 2018-03-05 05:08 | RAD ---
CLINICAL HISTORY: RT CALF PAIN AND SWELLING COMPARISON: None available. TECHNIQUE: Ultrasound evaluation of the right leg was performed from the groin to the upper calf with wiley scale, spectral and color doppler evaluation. FINDINGS: The right common femoral vein, and femoral vein, including the saphenous-femoral junction are normal in appearance. Color and spectral Doppler evaluation demonstrates normal spontaneous flow, augmentation and phasicity. The popliteal vein and visualized calf veins also demonstrate normal compressibility and flow. IMPRESSION: No evidence of right lower extremity DVT. Electronically signed by: Chris Tan MD (03/05/2018 5:04 AM) [place] [id number]
--- NOTE | 2018-03-05 08:11 | RAD ---
2 view study of the right tibia and fibula Clinical indications: Lateral wound of the distal one third of the lower leg. Patient fell through floor at work 8 weeks ago, scratch. Scratch is now a wound. FINDINGS: No acute fracture or dislocation or osteolytic process is evident. No radiopaque foreign body is evident. IMPRESSION: No acute osseous abnormality. Electronically signed by: Ashwin Erazo MD (03/05/2018 8:08 AM) [facility]
== END 2018-03-05 05:05 | disposition home or self-care (01) ==
LOC: ER 00:55
DX: S81.801D Unspecified open wound, right lower leg, subsequent encounter (principal); Z48.01 Encounter for change or removal of surgical wound dressing; E87.6 Hypokalemia; I10 Essential (primary) hypertension; F17.210 Nicotine dependence, cigarettes, uncomplicated; X58.XXXD Exposure to other specified factors, subsequent encounter
CPT/HCPCS: 36415; 73590; 80053; 83605; 83735; 85025; 85610; 85730; 87040; 93971; 96374; 99285; J1885; J7030

== ENCOUNTER → 2018-03-29 | Outpatient (CLI) | payer OTHER ==
[2018-03-05 01:15] VITALS: BP 218/140
[~2018-03-29] MED LIST changes: +MUPI15CR TP; +TRAM50TA PO
== END | disposition home or self-care (01) ==
LOC: PMGWOUND 11:05
PROVIDERS: ATTEND Preventive Medicine Undersea and Hyperbaric Medicine
DX: I87.311 Chronic venous hypertension (idiopathic) with ulcer of right lower extremity (principal); L97.312 Non-pressure chronic ulcer of right ankle with fat layer exposed; F17.210 Nicotine dependence, cigarettes, uncomplicated; E66.9 Obesity, unspecified; Z68.34 Body mass index [BMI] 34.0-34.9, adult
CPT/HCPCS: 11042

== ENCOUNTER → 2018-04-05 | Outpatient (CLI) | payer OTHER ==
--- NOTE | 2018-04-06 15:53 | RAD ---
Right lower extremity venous Doppler dated 12/03/2017. No comparison available. Clinical data indication: Nonhealing ulcer. Right leg pain. FINDINGS: Grayscale color flow and spectral waveform analysis performed. There is venous reflux within the right greater saphenous vein extending from the groin to the ankle, lasting greater than 1 second. There is also venous reflux involving the small saphenous vein from the knee to the ankle, greater than one second. A lateral assessor of the calf veins to the ulcer side, also with venous reflux. IMPRESSION: Study is positive for venous reflux involving the right greater saphenous vein and right small saphenous vein. There is also a refluxing lateral assessor in the right calf. Electronically signed by: Lyle Mckeon MD (04/06/2018 3:49 PM) [facility]
== END | disposition home or self-care (01) ==
LOC: US 10:14
PROVIDERS: ATTEND Preventive Medicine Undersea and Hyperbaric Medicine
DX: L97.218 Non-pressure chronic ulcer of right calf with other specified severity (principal)
CPT/HCPCS: 93971; 97597

== ENCOUNTER → 2018-04-17 | Outpatient (CLI) | payer OTHER | END | disposition home or self-care (01) | LOC: PMGWOUND 10:08 | PROVIDERS: ATTEND Preventive Medicine Undersea and Hyperbaric Medicine | DX: I87.311 Chronic venous hypertension (idiopathic) with ulcer of right lower extremity (principal); L97.311 Non-pressure chronic ulcer of right ankle limited to breakdown of skin; F17.210 Nicotine dependence, cigarettes, uncomplicated; E66.9 Obesity, unspecified; Z68.34 Body mass index [BMI] 34.0-34.9, adult | CPT/HCPCS: 97597 ==

== ENCOUNTER → 2018-05-03 | Outpatient (CLI) | payer OTHER | END | disposition home or self-care (01) | LOC: PMGWOUND 11:25 | PROVIDERS: ATTEND Preventive Medicine Undersea and Hyperbaric Medicine | DX: I87.311 Chronic venous hypertension (idiopathic) with ulcer of right lower extremity (principal); L97.812 Non-pressure chronic ulcer of other part of right lower leg with fat layer exposed; F17.210 Nicotine dependence, cigarettes, uncomplicated; E66.9 Obesity, unspecified; Z68.34 Body mass index [BMI] 34.0-34.9, adult | CPT/HCPCS: 29581; 97597 ==

== ENCOUNTER → 2018-05-06 | Outpatient (CLI) | payer OTHER | END | disposition home or self-care (01) | LOC: PMGWOUND 08:13 | PROVIDERS: ATTEND Emergency Medicine Undersea and Hyperbaric Medicine | DX: I87.311 Chronic venous hypertension (idiopathic) with ulcer of right lower extremity (principal); L97.311 Non-pressure chronic ulcer of right ankle limited to breakdown of skin; F17.210 Nicotine dependence, cigarettes, uncomplicated; E66.9 Obesity, unspecified; Z68.34 Body mass index [BMI] 34.0-34.9, adult | CPT/HCPCS: 29581 ==

== ENCOUNTER → 2018-05-17 | Outpatient (CLI) | payer OTHER | END | disposition home or self-care (01) | LOC: PMGWOUND 11:32 | PROVIDERS: ATTEND Preventive Medicine Undersea and Hyperbaric Medicine | DX: I87.311 Chronic venous hypertension (idiopathic) with ulcer of right lower extremity (principal); L97.312 Non-pressure chronic ulcer of right ankle with fat layer exposed; F17.210 Nicotine dependence, cigarettes, uncomplicated; E66.9 Obesity, unspecified; Z68.34 Body mass index [BMI] 34.0-34.9, adult | CPT/HCPCS: 29581; 97597 ==

== ENCOUNTER → 2018-05-24 | Outpatient (CLI) | payer OTHER | END | disposition home or self-care (01) | LOC: PMGWOUND 07:59 | PROVIDERS: ATTEND Preventive Medicine Undersea and Hyperbaric Medicine | DX: I87.311 Chronic venous hypertension (idiopathic) with ulcer of right lower extremity (principal); L97.312 Non-pressure chronic ulcer of right ankle with fat layer exposed; L97.821 Non-pressure chronic ulcer of other part of left lower leg limited to breakdown of skin; F17.210 Nicotine dependence, cigarettes, uncomplicated; E66.9 Obesity, unspecified; Z68.34 Body mass index [BMI] 34.0-34.9, adult | CPT/HCPCS: 97597 ==

== ENCOUNTER → 2018-05-31 | Outpatient (CLI) | payer OTHER | END | disposition home or self-care (01) | LOC: PMGWOUND 07:50 | PROVIDERS: ATTEND Preventive Medicine Undersea and Hyperbaric Medicine | DX: I87.313 Chronic venous hypertension (idiopathic) with ulcer of bilateral lower extremity (principal); L97.821 Non-pressure chronic ulcer of other part of left lower leg limited to breakdown of skin; L97.811 Non-pressure chronic ulcer of other part of right lower leg limited to breakdown of skin; F17.210 Nicotine dependence, cigarettes, uncomplicated; E66.9 Obesity, unspecified; Z68.34 Body mass index [BMI] 34.0-34.9, adult | CPT/HCPCS: 29581 ==

== ENCOUNTER → 2018-06-07 | Outpatient (CLI) | payer OTHER | END | disposition home or self-care (01) | LOC: PMGWOUND 07:41 | PROVIDERS: ATTEND Preventive Medicine Undersea and Hyperbaric Medicine | DX: I87.313 Chronic venous hypertension (idiopathic) with ulcer of bilateral lower extremity (principal); L97.812 Non-pressure chronic ulcer of other part of right lower leg with fat layer exposed; L97.311 Non-pressure chronic ulcer of right ankle limited to breakdown of skin; L97.821 Non-pressure chronic ulcer of other part of left lower leg limited to breakdown of skin; F17.210 Nicotine dependence, cigarettes, uncomplicated; E66.9 Obesity, unspecified; Z68.34 Body mass index [BMI] 34.0-34.9, adult | CPT/HCPCS: 29581; 97597 ==

== ENCOUNTER → 2018-06-14 | Outpatient (CLI) | payer OTHER | END | disposition home or self-care (01) | LOC: PMGWOUND 08:51 | PROVIDERS: ATTEND Preventive Medicine Undersea and Hyperbaric Medicine | DX: I87.313 Chronic venous hypertension (idiopathic) with ulcer of bilateral lower extremity (principal); L97.312 Non-pressure chronic ulcer of right ankle with fat layer exposed; L97.821 Non-pressure chronic ulcer of other part of left lower leg limited to breakdown of skin; F17.210 Nicotine dependence, cigarettes, uncomplicated; E66.9 Obesity, unspecified; Z68.34 Body mass index [BMI] 34.0-34.9, adult | CPT/HCPCS: 29581; 97597 ==

== ENCOUNTER → 2018-06-21 | Outpatient (CLI) | payer OTHER | LOC: PMGWOUND 08:06 | PROVIDERS: ATTEND Preventive Medicine Undersea and Hyperbaric Medicine | DX: I87.313 Chronic venous hypertension (idiopathic) with ulcer of bilateral lower extremity (principal); L97.311 Non-pressure chronic ulcer of right ankle limited to breakdown of skin; L97.821 Non-pressure chronic ulcer of other part of left lower leg limited to breakdown of skin; L97.811 Non-pressure chronic ulcer of other part of right lower leg limited to breakdown of skin; F17.210 Nicotine dependence, cigarettes, uncomplicated; E66.9 Obesity, unspecified; Z68.34 Body mass index [BMI] 34.0-34.9, adult | CPT/HCPCS: 29581 ==

== ENCOUNTER → 2018-06-28 | Outpatient (CLI) | payer OTHER ==
[~2018-06-28] MED LIST changes: +CLIN150C14 PO
== END | disposition home or self-care (01) ==
LOC: PMGWOUND 08:22
PROVIDERS: ATTEND Preventive Medicine Undersea and Hyperbaric Medicine
DX: I87.312 Chronic venous hypertension (idiopathic) with ulcer of left lower extremity (principal); L97.822 Non-pressure chronic ulcer of other part of left lower leg with fat layer exposed; F17.210 Nicotine dependence, cigarettes, uncomplicated; E66.9 Obesity, unspecified; Z68.34 Body mass index [BMI] 34.0-34.9, adult
CPT/HCPCS: 11042; 97597

== ENCOUNTER → 2018-07-05 | Outpatient (CLI) | payer SELFPAY | END | disposition home or self-care (01) | LOC: PMGWOUND 09:00 | PROVIDERS: ATTEND Preventive Medicine Undersea and Hyperbaric Medicine | DX: I87.311 Chronic venous hypertension (idiopathic) with ulcer of right lower extremity (principal); L97.311 Non-pressure chronic ulcer of right ankle limited to breakdown of skin; F17.210 Nicotine dependence, cigarettes, uncomplicated; E66.9 Obesity, unspecified; Z68.34 Body mass index [BMI] 34.0-34.9, adult | CPT/HCPCS: 99213; 99214; G0463 ==

== ENCOUNTER 2018-09-14 06:20 | Emergency (ER) | payer OTHER ==
[~2018-09-14] VITALS: Ht 177.8 cm; Wt 104.3 kg
[2018-09-14 06:20] VITALS: BP 216/146
[~2018-09-14 06:20] MED LIST changes: -CLIN150C14 PO
[2018-09-14] MEDS ORDERED: CLIN150C14 PO (06:53)
--- NOTE | 2018-09-14 06:54 | PHYS DOC ---
Past Medical History Past Medical History: Hypertension Additional Past Medical Histor: RIGHT CALF NONHEALING WOUND Past Surgical History: No Surgical History Additional Past Surgical Histo: LT ACL REPAIR, EYE SX A CHILD Alcohol Use: Rarely Drug Use: None Adult General Chief Complaint Chief Complaint: WOUND CHECK [facility] HPI Patient is a 48 year old male presented to the ER for evaluation of a nonhealing wound on the back of his left ankle for about 1 month. Patient said the walked boot rubbed against the heel of his left ankle and caused a skin ulceration. He has left over BACTRIM DS so he has been taking it, not helping. Patient does not have diabetic. He denied any fever. Patient has history of HTN, has two prescriptions for antihypertensive medications but he has not have them filled yet. Patient said he lives in his car. Review of Systems Review of Systems Constitutional: Denies fever or chills [] Eyes: Denies change in visual acuity, redness, or eye pain [] HENT: Denies nasal congestion or sore throat [] Respiratory: Denies cough or shortness of breath [] Cardiovascular: No additional information not addressed in HPI [] GI: Denies abdominal pain, nausea, vomiting, bloody stools or diarrhea [] : Denies dysuria or hematuria [] Musculoskeletal: Denies back pain or joint pain [] Integument: POSITIVE FOR SKIN ULCERATION ON THE HEEL OF LEFT ANKLE. Neurologic: Denies headache, focal weakness or sensory changes [] Endocrine: Denies polyuria or polydipsia [] All other systems were reviewed and found to be within normal limits, except as documented in this note. Allergies Allergies Allergies Coded Allergies Type Severity Reaction Last Updated Verified No Known Drug Allergies 04/17/17 No Physical Exam Physical Exam Constitutional: Well developed, well nourished, no acute distress, non-toxic appearance. [] HENT: Normocephalic, atraumatic, bilateral external ears normal, oropharynx moist, no oral exudates, nose normal. [] Eyes: PERRLA, EOMI, conjunctiva normal, no discharge. [] Neck: Normal range of motion, no tenderness, supple, no stridor. [] Cardiovascular:Heart rate regular rhythm, no murmur [] Lungs & Thorax: Bilateral breath sounds clear to auscultation [] Skin: Warm, dry. There is an ulcerated wound on the back of left ankle, no active drainage. The wound is about the size of the quarter. Back: No tenderness, no CVA tenderness. [] Extremities: No tenderness, no cyanosis, no clubbing, ROM intact, no edema. [] Neurologic: Alert and oriented X 3, normal motor function, normal sensory function, no focal deficits noted. [] Psychologic: Affect normal, judgement normal, mood normal. [] Current Patient Data Vital Signs Vital Signs Date Time Temp Pulse Resp B/P (MAP) Pulse Ox O2 Delivery O2 Flow Rate FiO2 09/14/18 06:20 98.5 83 16 216/146 (169) 99 Room Air 98.5 EKG EKG [] Radiology/Procedures Radiology/Procedures [] Course & Med Decision Making Course & Med Decision Making Pertinent Labs and Imaging studies reviewed. (See chart for details) The wound was cleaned by this physician with betadine solution. The wound was then dressed with Aquacel pad. Patient was given follow up instruction with [facility] on Sunday. Patient was given prescription for Clindamycin. Patient's blood pressure elevated. Patient has history of HTN. He said he has two prescriptions for HYPERTENSIVE MEDICATIONS AT HOME AND WILL GET THEM FILLED TODAY. Patient denied any chest pain, no shortness of air, no blurry vision. NO abdominal pain, no nausea or vomiting. No headache, no dizziness. Dragon Disclaimer Dragon Disclaimer This electronic medical record was generated, in whole or in part, using a voice recognition dictation system. Departure Departure Impression: Primary Impression: Wound cellulitis Additional Impression: HTN (hypertension) Disposition: HOME, SELF-CARE Condition: STABLE Referrals: NO PCP (PCP) [facility] follow up with wound care center on sunday for reevaluation Patient Instructions: Hypertension, Pressure Ulcer Scripts Clindamycin Hcl (CLINDAMYCIN HCL) 150 Mg Capsule 300 MG PO QID for 10 Days, #80 CAP Prov: ANNABELLA DE LA CRUZ DO 09/14/18 Problem Qualifiers ANNABELLA DE LA CRUZ DO Sep 14, 2018 06:54
== END 2018-09-14 06:59 | disposition home or self-care (01) ==
LOC: ER 06:20
DX: L03.116 Cellulitis of left lower limb (principal); I10 Essential (primary) hypertension
CPT/HCPCS: 99283

== ENCOUNTER 2018-10-18 15:58 | Emergency (ER) | payer OTHER ==
[~2018-10-18] VITALS: Ht 175.3 cm; Wt 104.3 kg
[~2018-10-18 15:58] MED LIST changes: +CLIN150C14 PO
[2018-10-18 16:04] VITALS: BP 214/140
[2018-10-18] MEDS ORDERED: LABETALOL 20 MG/4 ML DISP.SYRIN. IVP ONE (16:30)
[2018-10-18] MEDS ORDERED: HYDROcodone/APAP 5/325MG 1 TAB TABLET PO ONE (16:30)
--- NOTE | 2018-10-18 16:59 | PHYS DOC ---
Past Medical History Past Medical History: Hypertension, Other Additional Past Medical Histor: RIGHT CALF NONHEALING WOUND Past Surgical History: Other Additional Past Surgical Histo: LT ACL REPAIR, EYE SX A CHILD Additional Information: 1 PPD Alcohol Use: Rarely Drug Use: None Adult General Chief Complaint Chief Complaint: DIZZY/LIGHT HEADED HPI HPI Patient is a 48 year old male who presents with complaining of high blood pressure and dizziness and chronic wound. Patient is homeless and has had chronic left lower extremity wound and following the clinic weekly Review of Systems Review of Systems Constitutional: Denies fever or chills [] Eyes: Denies change in visual acuity, redness, or eye pain [] HENT: Denies nasal congestion or sore throat [] Respiratory: Denies cough or shortness of breath [] Cardiovascular: No additional information not addressed in HPI [] GI: Denies abdominal pain, nausea, vomiting, bloody stools or diarrhea [] : Denies dysuria or hematuria [] Musculoskeletal: Denies back pain or joint pain [] Integument: Denies rash or skin lesions [] Neurologic: Denies headache, focal weakness or sensory changes [] Endocrine: Denies polyuria or polydipsia [] All other systems were reviewed and found to be within normal limits, except as documented in this note. Current Medications Current Medications Current Medications Medications (Trade) Dose Ordered Sig/Yohana Start Time Stop Time Status Last Admin Dose Admin Acetaminophen/ Hydrocodone Bitart (Lortab 5/325) 1 tab 1X ONCE 10/18/18 16:30 10/18/18 16:31 DC Labetalol HCl (Normodyne Iv Push) 20 mg 1X ONCE 10/18/18 16:30 10/18/18 16:31 DC Allergies Allergies Allergies Coded Allergies Type Severity Reaction Last Updated Verified No Known Drug Allergies 04/17/17 No Physical Exam Physical Exam Constitutional: Well developed, well nourished, no acute distress, non-toxic appearance. [] HENT: Normocephalic, atraumatic, bilateral external ears normal, oropharynx moist, no oral exudates, nose normal. [] Eyes: PERRLA, EOMI, conjunctiva normal, no discharge. [] Neck: Normal range of motion, no tenderness, supple, no stridor. [] Cardiovascular:Heart rate regular rhythm, no murmur [] Lungs & Thorax: Bilateral breath sounds clear to auscultation [] Abdomen: Bowel sounds normal, soft, no tenderness, no masses, no pulsatile masses. [] Skin: Warm, dry, no erythema, no rash. [] Back: No tenderness, no CVA tenderness. [] Extremities: No tenderness, no cyanosis, no clubbing, ROM intact, no edema. [] Neurologic: Alert and oriented X 3, normal motor function, normal sensory function, no focal deficits noted. [] Psychologic: Affect normal, judgement normal, mood normal. [] Current Patient Data Vital Signs Vital Signs Date Time Temp Pulse Resp B/P (MAP) Pulse Ox O2 Delivery O2 Flow Rate FiO2 10/18/18 16:04 98.5 92 16 214/140 (164) 99 Room Air 98.5 EKG EKG EKG interpreted by me. EKG at 1608 showed normal sinus rhythm at rate of 91, left atrial abnormalities, normal MI and QT intervals, T-wave abnormalities in anterior leads, no acute ST and T-wave abnormalities. Radiology/Procedures Radiology/Procedures [] Course & Med Decision Making Course & Med Decision Making Pertinent Labs and Imaging studies reviewed. (See chart for details) [] Dragon Disclaimer Dragon Disclaimer This electronic medical record was generated, in whole or in part, using a voice recognition dictation system. Departure Departure Impression: Primary Impression: Hypertensive urgency, malignant Additional Impressions: Wound cellulitis Left against medical advice Tobacco abuse Disposition: 07 AGAINST MEDICAL ADVICE (at 1650 without signing AMA form) Condition: GUARDED Referrals: NO PCP (PCP) Problem Qualifiers CAROLYN ANDERS MD October 18, 2018 16:59
--- NOTE | 2018-10-19 10:26 | EKG ---
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
== END 2018-10-18 17:19 | disposition left against medical advice (07) ==
LOC: ER 15:58
DX: I16.0 Hypertensive urgency (principal); L03.116 Cellulitis of left lower limb; R42 Dizziness and giddiness; I10 Essential (primary) hypertension; Z72.0 Tobacco use; Z59.0 Homelessness
CPT/HCPCS: 93005; 99283

== ENCOUNTER → 2018-11-15 | Outpatient (CLI) | payer OTHER ==
[2018-10-18 16:04] VITALS: BP 214/140
--- NOTE | 2018-11-15 09:33 | RAD ---
Left lower extremity venous ultrasound, 11/15/2018 : History: Left leg nonhealing ulcers Duplex evaluation including grayscale, color flow and spectral Doppler analysis was performed. The femoral and popliteal veins show no filling defects to suggest DVT. The visualized calf veins are unremarkable. IMPRESSION: There is no sonographic evidence of deep vein thrombosis in the left lower extremity Electronically signed by: Matty Rojas MD (11/15/2018 9:31 AM) [facility]
--- NOTE | 2018-11-15 10:22 | RAD ---
Left lower extremity venous insufficiency ultrasound exam, 11/15/2018: HISTORY: Nonhealing ulcers Duplex evaluation of the saphenous veins in the left lower extremity was performed utilizing grayscale, color-flow and spectral Doppler analysis The left greater saphenous vein is patent. It measures 9 mm at the upper thigh level. The reflux time is 0.5 seconds which does not reflect significant reflux. A small perforating vein is noted in the left lower leg demonstrating a reflux time of 1.6 seconds. The left lesser saphenous vein is patent and shows no significant reflux. IMPRESSION: No duplex evidence of significant reflux in the left greater saphenous or lesser saphenous veins. Electronically signed by: Matty Rojas MD (11/15/2018 10:19 AM) [facility]
--- NOTE | 2018-11-15 10:26 | RAD ---
Left lower extremity arterial ultrasound, 11/15/2018: HISTORY: Nonhealing ulcer Duplex evaluation of the major arteries in the left lower extremity was performed including grayscale, color-flow and spectral Doppler analysis. The common femoral, superficial femoral and popliteal arteries demonstrate triphasic Doppler waveforms. No significant focal plaque formation is seen. Patent posterior tibial, peroneal and anterior tibial arteries are present in the left lower leg also demonstrating triphasic Doppler waveforms. There appears to be mild intimal thickening and plaquing in these vessels. The left dorsalis pedis artery is patent and demonstrates a triphasic Doppler waveform. IMPRESSION: No duplex evidence of significant arterial occlusive disease in the left lower extremity. Ankle-brachial indices, 11/15/2018: Resting TONNY readings were obtained. Normal measurements of 1.3 on the right and 1.3 on the left were obtained. IMPRESSION: Normal resting ankle-brachial indices. Electronically signed by: Matty Rojas MD (11/15/2018 10:23 AM) [facility]
== END | disposition home or self-care (01) ==
LOC: US 07:05
PROVIDERS: ATTEND Preventive Medicine Undersea and Hyperbaric Medicine
DX: L97.928 Non-pressure chronic ulcer of unspecified part of left lower leg with other specified severity (principal)
CPT/HCPCS: 93922; 93926; 93970; 93971